=== PATIENT | male | born 1970 | race Caucasian/White ===

== ENCOUNTER 2020-10-29 07:10 | Emergency (ER) | payer OTHER ==
[2020-10-29 07:58] LABS: BASOPHIL 1.4 % (0-2); EOSINOPHIL 3.4 % (0-5); HCT 44.5 % (42.0-52.0); HGB 14.8 g/dl (13.2-18.0); LYMPHOCYTE 26.8 % (15-48); MCH 29.8 pg (25.0-31.0); MCHC 33.3 g/dL (32.0-36.0); MCV 89.7 fL (78.0-100.0); MONOCYTE 9.5 % (0-12); MPV 9.2 fL (6.0-9.5); NEUTROPHIL 58.7 % (41-80); NRBC 0; PLT 289 K/uL (150-400); RBC 4.96 M/uL (4.70-6.00); RDW 12.6 % (11.5-14.0); WBC 6.5 K/uL (4.0-10.5)
[2020-10-29 08:22] LABS: ALBUMIN 3.4 g/dL (3.4-5.0); BILIRUBIN - TOTAL 0.6 mg/dL (0.2-1.0); BUN/CREAT RATIO (CALC) 9.4 RATIO; CREATININE 1.06 mg/dL (0.67-1.17); GLOBULIN (CALCULATION) 4.2 g/dL; POTASSIUM 4.4 mmol/L (3.5-5.1); TOTAL PROTEIN 7.6 g/dL (6.4-8.2)
== END 2020-10-29 09:21 | disposition home or self-care (01) ==
LOC: FER 07:10
PROVIDERS: Emergency Medicine
DX: R10.9 Unspecified abdominal pain (principal); R11.0 Nausea
CPT/HCPCS: 36415; 80053; 83690; 85025; 99284